=== PATIENT | female | born 1960 | race African-American/Black ===

== ENCOUNTER 2022-06-21 18:38 | Emergency (ER) | payer MEDICARE, OTHER ==
[~2022-06-21] VITALS: Ht 157.5 cm; Wt 60.9 kg
[~2022-06-21 18:38] MED LIST: AMLO-258 PO; AMLO5TAB4 PO; ASPI-1450 PO; ASPI81TA39 PO; CLON.2P TD; CLON1PAT4 TD; DOCU-281 PO; HYDR50TA36 PO; INSLAN SQ; LOSA50TA65 PO; METR500T PO; MYCO250C36 PO; POTA8CAP20 PO; PRED-549 PO; TACR5CAP21 PO
[2022-06-21] MEDS ORDERED: HYDROGEN PEROXIDE 118 ML SOLUTION TP ONE (20:00)
[2022-06-21 20:42] VITALS: BP 129/77
== END 2022-06-21 20:50 | disposition home or self-care (01) ==
LOC: EMS 18:38
DX: S01.01XA Laceration without foreign body of scalp, initial encounter (principal); W17.89XA Other fall from one level to another, initial encounter; Y93.89 Activity, other specified; Y92.89 Other specified places as the place of occurrence of the external cause; Y99.8 Other external cause status; E11.9 Type 2 diabetes mellitus without complications; I10 Essential (primary) hypertension; Z94.0 Kidney transplant status; Z98.890 Other specified postprocedural states
CPT/HCPCS: 70450; 99284

== ENCOUNTER 2022-11-30 16:25 | Inpatient (IN) | payer MEDICARE, OTHER ==
[~2022-11-30] VITALS: Ht 160 cm; Wt 61.1 kg
[2022-11-30] MEDS ORDERED: CLON-441 PO (16:35)
[2022-11-30] MEDS ORDERED: METOPROLOL PO (16:38)
[2022-11-30] MEDS ORDERED: HYDROCODONE/ACETAMINOPHEN 5-325 MG TABLET PO ONE (17:30)
[2022-11-30] MEDS ORDERED: LIDOCAINE 5% TRANSDERMAL PATCH TD ONE (17:30)
[2022-11-30] MEDS ORDERED: EVOL420W2 SQ (17:35)
[2022-11-30] MEDS ORDERED: TRAZ-252 PO (17:35)
[2022-11-30] MEDS ORDERED: ATOR-2 PO (17:35)
[2022-11-30] MEDS ORDERED: EZET10TA57 PO (17:35)
[2022-11-30] MEDS ORDERED: ASPI-1444 PO (17:35)
[2022-11-30] MEDS ORDERED: CLOP75TA32 PO (17:35)
[2022-11-30] MEDS ORDERED: PREG75CA75 PO (17:35)
[2022-11-30] MEDS ORDERED: METO-408 PO (17:35)
[2022-11-30] MEDS ORDERED: DULO-114 PO (17:35)
[2022-11-30] MEDS ORDERED: CLON1PAT12 TP (17:35)
[2022-11-30 20:50] LABS: BASOPHILS % (AUTO) 0.7 % (0.0-2.0); EOSINOPHILS % (AUTO) 3.7 % (1.0-6.0); HEMATOCRIT 33.2 % (36-46); HEMOGLOBIN 10.7 g/dL (12.0-16.0); LYMPHOCYTES # (AUTO) 0.8 K/uL (1.0-4.8); LYMPHOCYTES % (AUTO) 15.1 % (22.0-44.0); MEAN CORPUSCULAR HEMOGLOBIN 29.1 pg (26.0-34.0); MEAN CORPUSCULAR HGB CONC 32.4 G/dL (31.0-37.0); MEAN CORPUSCULAR VOLUME 90 fL (80-100); MONOCYTES # (AUTO) 0.7 K/uL (0.1-1.0); MONOCYTES % (AUTO) 11.9 % (2.0-9.0); NEUTROPHILS # (AUTO) 3.8 K/uL (1.8-7.7); NEUTROPHILS % (AUTO) 68.6 % (40.0-70.0); PLATELET COUNT (AUTO) 318 K/uL (150-450); RED BLOOD CELL COUNT(AUTO) 3.69 MIL/uL (4.00-5.20); RED CELL DISTRIBUTION WIDTH 19.1 % (11.5-14.5)
[2022-11-30 21:05] LABS: CALCIUM, TOTAL 9.6 mg/dL (8.8-10.5); CREATININE 13.67 mg/dL (0.60-1.30); POTASSIUM 5.2 mmol/L (3.5-5.1)
[2022-11-30 21:06] LABS: COVID AG,FIA SOURCE NASOPHARYNGEAL
[2022-11-30 21:11] LABS: GLUCOMETER DEV NAME(LOC) ERT.5; GLUCOSE,POINT OF CARE 88 MG/DL (70-110)
[2022-11-30] MEDS ORDERED: BISACODYL 10 MG RECTAL RECTAL SUPPOSITORY PR PRN (23:30)
[2022-11-30] MEDS ORDERED: DEXTROSE 50%-WATER 25 GM/50 ML SYRINGE IVP PRN (23:30)
[2022-11-30] MEDS ORDERED: ZOLPIDEM TARTRATE 5 MG TABLET PO PRN (23:30)
[2022-11-30] MEDS ORDERED: ACETAMINOPHEN 325 MG TABLET PO PRN (23:30)
[2022-11-30] MEDS ORDERED: INSULIN LISPRO 100 UNITS/ML SQ PRN (23:30)
[2022-11-30] MEDS ORDERED: ONDANSETRON HCL 4 MG/2 ML VIAL IVP PRN (23:30)
[2022-12-01] MEDS: HEPARIN SODIUM,PORCINE 5,000 UNITS/ML VIAL SQ SCH ×3 (01:24→15:31)
[2022-12-01] MEDS: OxyCODONE HCL/ACETAMINOPHEN 5-325 MG TABLET PO PRN ×4 (01:24→17:06)
[2022-12-01 01:36] VITALS: BP 164/95
[2022-12-01 01:45] LABS: GLUCOMETER DEV NAME(LOC) 6S.1B; GLUCOSE,POINT OF CARE 113 MG/DL (70-110)
[2022-12-01 05:13] VITALS: BP 161/76
[2022-12-01 06:46] LABS: GLUCOMETER DEV NAME(LOC) 6S.1B; GLUCOSE,POINT OF CARE 72 MG/DL (70-110)
[2022-12-01 07:31] VITALS: BP 184/94
[2022-12-01] MEDS: ATORVASTATIN CALCIUM 40 MG TABLET PO SCH (08:26)
[2022-12-01] MEDS: FAMOTIDINE 20 MG TABLET PO SCH (08:26)
[2022-12-01] MEDS: DOCUSATE SODIUM 100 MG CAPSULE PO SCH ×2 (08:27→20:01)
[2022-12-01] MEDS: ASPIRIN 81 MG CHEWABLE TABLET PO SCH (08:27)
[2022-12-01] MEDS: PREGABALIN 75 MG CAPSULE PO SCH ×2 (08:56→20:02)
[2022-12-01] MEDS: METOPROLOL TARTRATE 25 MG TABLET PO SCH ×2 (08:56→20:02)
[2022-12-01] MEDS: AmLODIPine BESYLATE 10 MG TABLET PO SCH (08:56)
[2022-12-01 15:16] LABS: GLUCOMETER DEV NAME(LOC) 6S.1B; GLUCOSE,POINT OF CARE 98 MG/DL (70-110)
[2022-12-01 15:16] LABS: GLUCOMETER DEV NAME(LOC) 6S.1B; GLUCOSE,POINT OF CARE 65 MG/DL (70-110)
[2022-12-01 15:18] VITALS: BP 129/74
[2022-12-01 18:51] LABS: GLUCOMETER DEV NAME(LOC) 6N.1; GLUCOSE,POINT OF CARE 84 MG/DL (70-110)
[2022-12-01 23:00] VITALS: BP 163/84
[2022-12-02] VITALS (8 sets, daily range): BP systolic 108–168; BP diastolic 73–85
[2022-12-02] MEDS: OxyCODONE HCL/ACETAMINOPHEN 5-325 MG TABLET PO PRN ×2 (00:37→16:44)
[2022-12-02 07:08] LABS: CHOL/HDL RATIO 3.5 (3.9-5.7)
[2022-12-02 07:18] LABS: EOSINOPHILS % (AUTO) 6.6 % (1.0-6.0); HEMOGLOBIN 9.9 g/dL (12.0-16.0); LYMPHOCYTES # (AUTO) 0.6 K/uL (1.0-4.8); LYMPHOCYTES % (AUTO) 12.8 % (22.0-44.0); MEAN CORPUSCULAR VOLUME 91 fL (80-100); MONOCYTES # (AUTO) 0.6 K/uL (0.1-1.0); MONOCYTES % (AUTO) 13.5 % (2.0-9.0); NEUTROPHILS % (AUTO) 66.1 % (40.0-70.0); PLATELET COUNT (AUTO) 296 K/uL (150-450); RED BLOOD CELL COUNT(AUTO) 3.41 MIL/uL (4.00-5.20); RED CELL DISTRIBUTION WIDTH 18.9 % (11.5-14.5)
[2022-12-02 07:51] LABS: GLUCOMETER DEV NAME(LOC) 6N.1; GLUCOSE,POINT OF CARE 127 MG/DL (70-110)
[2022-12-02 07:51] LABS: GLUCOMETER DEV NAME(LOC) 6N.1; GLUCOSE,POINT OF CARE 95 MG/DL (70-110)
[2022-12-02] MEDS: HEPARIN SODIUM,PORCINE 5,000 UNITS/ML VIAL SQ SCH ×3 (08:59→15:05)
[2022-12-02] MEDS: METOPROLOL TARTRATE 25 MG TABLET PO SCH ×2 (08:59→22:49)
[2022-12-02] MEDS: ATORVASTATIN CALCIUM 40 MG TABLET PO SCH (08:59)
[2022-12-02] MEDS: ASPIRIN 81 MG CHEWABLE TABLET PO SCH (09:00)
[2022-12-02] MEDS: PREGABALIN 75 MG CAPSULE PO SCH ×2 (09:00→22:48)
[2022-12-02] MEDS: DOCUSATE SODIUM 100 MG CAPSULE PO SCH ×2 (09:00→22:48)
[2022-12-02] MEDS: AmLODIPine BESYLATE 10 MG TABLET PO SCH (09:01)
[2022-12-02] MEDS: FAMOTIDINE 20 MG TABLET PO SCH (09:01)
[2022-12-02] MEDS: FOLIC ACID/VIT B COMPLEX AND C TABLET PO SCH (12:00)
[2022-12-02] MEDS: SEVELAMER CARBONATE 800 MG TABLET PO SCH ×2 (12:00→17:47)
[2022-12-02] MEDS: FUROSEMIDE 80 MG TABLET PO ONE ×2 (12:08→13:50)
[2022-12-02] MEDS ORDERED: EPOETIN ALFA 10,000 UNITS/ML VIAL SQ SCH (13:00)
[2022-12-02] MEDS: GENTAMICIN SULFATE 0.1% 15 GM OINTMENT TP SCH (13:41)
[2022-12-02 17:01] LABS: GLUCOMETER DEV NAME(LOC) 6N.2B; GLUCOSE,POINT OF CARE 103 MG/DL (70-110)
[2022-12-02 20:11] LABS: GLUCOMETER DEV NAME(LOC) 6N.1; GLUCOSE,POINT OF CARE 100 MG/DL (70-110)
[2022-12-02] MEDS ORDERED: LIDOCAINE/PF 1% 30 ML VIAL ONE (20:38)
[2022-12-02] MEDS ORDERED: HEPARIN SODIUM 1000 UNITS/NS 1,000 ML ONE (20:38)
[2022-12-02] MEDS ORDERED: IODIXANOL 320 MG/ML 100 ML VIAL ONE (20:38)
[2022-12-02] MEDS ORDERED: IODIXANOL 320 MG/ML 50 ML VIAL ONE (20:38)
[2022-12-02] MEDS ORDERED: IODIXANOL 320 MG/ML 150 ML VIAL ONE (20:38)
[2022-12-02] MEDS ORDERED: SODIUM BICARBONATE 50 MEQ/50 ML VIAL ONE (20:38)
[2022-12-02] MEDS ORDERED: IOHEXOL 300 MG/ML 50 ML VIAL ICOR ONE (21:15)
[2022-12-02] MEDS ORDERED: LIDOCAINE 1% 30 ML/SOD BICARB 8.4% 4 ML SQ ONE (21:15)
[2022-12-02] MEDS ORDERED: HEPARIN SODIUM 2,000 UNITS in HEPARIN SODIUM 1000 UNITS/NS 1,000 ML IARTER ONE (21:15)
[2022-12-02] MEDS ORDERED: HEPARIN SODIUM,PORCINE 1,000 UNITS/ML VIAL IVP ONE (21:15)
[2022-12-02] MEDS ORDERED: MIDAZOLAM HCL 2 MG/2 ML VIAL IVP ONE ×2 (21:15→21:45)
[2022-12-02] MEDS ORDERED: SODIUM CHLORIDE 0.9% 500 ML IV ONE (21:15)
[2022-12-02] MEDS ORDERED: FentaNYL CITRATE PF 100 MCG/2 ML VIAL IVP ONE ×2 (21:15→21:45)
[2022-12-02] MEDS ORDERED: FentaNYL CITRATE PF 100 MCG/2 ML VIAL ONE ×2 (21:17→21:32)
[2022-12-02] MEDS ORDERED: HEPARIN SODIUM,PORCINE 1,000 UNITS/ML 10 ML VIAL ONE ×2 (21:17→21:18)
[2022-12-02] MEDS ORDERED: MIDAZOLAM HCL 2 MG/2 ML VIAL ONE (21:18)
[2022-12-02] MEDS ORDERED: HydrALAZINE HCL 20 MG/ML VIAL ONE (21:26)
[2022-12-02] MEDS ORDERED: HEPARIN SODIUM,PORCINE 1,000 UNITS/ML 10 ML VIAL IVP ONE ×2 (21:45)
[2022-12-03] VITALS (9 sets, daily range): BP systolic 112–139; BP diastolic 68–86
[2022-12-03] MEDS: OxyCODONE HCL/ACETAMINOPHEN 5-325 MG TABLET PO PRN ×4 (06:53→22:43)
[2022-12-03] MEDS ORDERED: AMLO-258 PO (07:47)
[2022-12-03] MEDS: PREGABALIN 75 MG CAPSULE PO SCH ×2 (08:30→19:59)
[2022-12-03] MEDS: FOLIC ACID/VIT B COMPLEX AND C TABLET PO SCH (08:30)
[2022-12-03] MEDS: AmLODIPine BESYLATE 10 MG TABLET PO SCH (08:31)
[2022-12-03] MEDS: DOCUSATE SODIUM 100 MG CAPSULE PO SCH ×2 (08:31→19:58)
[2022-12-03] MEDS: METOPROLOL TARTRATE 25 MG TABLET PO SCH ×2 (08:32→19:59)
[2022-12-03] MEDS: FAMOTIDINE 20 MG TABLET PO SCH (08:32)
[2022-12-03] MEDS: ASPIRIN 81 MG CHEWABLE TABLET PO SCH (08:32)
[2022-12-03] MEDS: ATORVASTATIN CALCIUM 40 MG TABLET PO SCH (08:32)
[2022-12-03] MEDS: SEVELAMER CARBONATE 800 MG TABLET PO SCH ×3 (08:45→17:47)
[2022-12-03] MEDS: HEPARIN SODIUM,PORCINE 5,000 UNITS/ML VIAL SQ SCH ×4 (08:45→22:55)
[2022-12-03 11:26] LABS: GLUCOMETER DEV NAME(LOC) 6N.1; GLUCOSE,POINT OF CARE 140 MG/DL (70-110)
[2022-12-03 11:26] LABS: GLUCOMETER DEV NAME(LOC) 6N.1; GLUCOSE,POINT OF CARE 122 MG/DL (70-110)
[2022-12-03 11:31] LABS: GLUCOMETER DEV NAME(LOC) 6S.1B; GLUCOSE,POINT OF CARE 125 MG/DL (70-110)
[2022-12-03] MEDS: GENTAMICIN SULFATE 0.1% 15 GM OINTMENT TP SCH (16:42)
[2022-12-03 21:51] LABS: GLUCOMETER DEV NAME(LOC) 6N.2B; GLUCOSE,POINT OF CARE 109 MG/DL (70-110)
[2022-12-03 21:52] LABS: GLUCOMETER DEV NAME(LOC) 6N.1; GLUCOSE,POINT OF CARE 138 MG/DL (70-110)
[2022-12-04] MEDS: OxyCODONE HCL/ACETAMINOPHEN 5-325 MG TABLET PO PRN (06:10)
[2022-12-04 06:25] VITALS: BP 146/87
[2022-12-04] MEDS: FOLIC ACID/VIT B COMPLEX AND C TABLET PO SCH (07:48)
[2022-12-04] MEDS: PREGABALIN 75 MG CAPSULE PO SCH (07:48)
[2022-12-04] MEDS: ATORVASTATIN CALCIUM 40 MG TABLET PO SCH (07:49)
[2022-12-04] MEDS: DOCUSATE SODIUM 100 MG CAPSULE PO SCH (07:49)
[2022-12-04] MEDS: SEVELAMER CARBONATE 800 MG TABLET PO SCH (07:49)
[2022-12-04] MEDS: HEPARIN SODIUM,PORCINE 5,000 UNITS/ML VIAL SQ SCH (07:49)
[2022-12-04] MEDS: FAMOTIDINE 20 MG TABLET PO SCH (07:49)
[2022-12-04] MEDS: ASPIRIN 81 MG CHEWABLE TABLET PO SCH (07:49)
[2022-12-04] MEDS: METOPROLOL TARTRATE 25 MG TABLET PO SCH (07:56)
[2022-12-04] MEDS: AmLODIPine BESYLATE 10 MG TABLET PO SCH (07:57)
[2022-12-04 08:17] VITALS: BP 116/75
[2022-12-04 11:16] LABS: GLUCOMETER DEV NAME(LOC) 6N.1; GLUCOSE,POINT OF CARE 93 MG/DL (70-110)
[2022-12-06 10:36] LABS: GLUCOMETER DEV NAME(LOC) 6S.1B; GLUCOSE,POINT OF CARE 138 MG/DL (70-110)
== END 2022-12-04 10:35 | disposition home health service (06) | DRG 252 ==
LOC: EMS 16:27 → 6S 12-01 00:01
PROVIDERS: ADMIT Internal Medicine; ATTEND Internal Medicine
PROC: 3E1M39Z Irrigation of Peritoneal Cavity using Dialysate, Percutaneous Approach (ICD-10-PCS; principal; 2022-12-02)
PROC: 047M3ZZ Dilation of Right Popliteal Artery, Percutaneous Approach (ICD-10-PCS; 2022-12-02)
PROC: 047R3ZZ Dilation of Right Posterior Tibial Artery, Percutaneous Approach (ICD-10-PCS; 2022-12-02)
PROC: B41F1ZZ Fluoroscopy of Right Lower Extremity Arteries using Low Osmolar Contrast (ICD-10-PCS; 2022-12-02)
PROC: 3E1M39Z Irrigation of Peritoneal Cavity using Dialysate, Percutaneous Approach (ICD-10-PCS; 2022-12-03)
DX: E11.51 Type 2 diabetes mellitus with diabetic peripheral angiopathy without gangrene (principal); N18.6 End stage renal disease; I12.0 Hypertensive chronic kidney disease with stage 5 chronic kidney disease or end stage renal disease; E87.1 Hypo-osmolality and hyponatremia; I70.221 Atherosclerosis of native arteries of extremities with rest pain, right leg; R26.2 Difficulty in walking, not elsewhere classified; E11.40 Type 2 diabetes mellitus with diabetic neuropathy, unspecified; E11.22 Type 2 diabetes mellitus with diabetic chronic kidney disease; G89.29 Other chronic pain; Z20.822 Contact with and (suspected) exposure to COVID-19; D63.1 Anemia in chronic kidney disease; I25.10 Atherosclerotic heart disease of native coronary artery without angina pectoris; Z99.2 Dependence on renal dialysis; Z79.4 Long term (current) use of insulin; Z88.0 Allergy status to penicillin; Z82.41 Family history of sudden cardiac death; Z83.3 Family history of diabetes mellitus; Z87.891 Personal history of nicotine dependence; Z95.1 Presence of aortocoronary bypass graft
CPT/HCPCS: 36200; 73502; 75630; 75716; 75962; 80048; 80061; 82962; 85025; 87081; 90945; 93925; 97116; 97162; 97530; 99285; C2623; J0360; J0885; J1644; J2250; J3010; J3490; Q9967; 36415-L1; 36415-TC